=== PATIENT | male | born 1980 | race Caucasian/White ===

== ENCOUNTER 2016-12-30 03:45 | Emergency (ER) | payer OTHER | END 2016-12-30 04:17 | disposition home or self-care (01) | LOC: ER1 03:45 | DX: Z53.21 Procedure and treatment not carried out due to patient leaving prior to being seen by health care provider (principal) ==

== ENCOUNTER → 2017-03-11 | Outpatient (CLI) | payer OTHER ==
[2017-03-11 13:41] LABS: RED BLOOD COUNT 5.09 M/UL (4.20-5.50); WHITE BLOOD COUNT 8.2 K/UL (4.5-11.0)
[2017-03-11 14:00] LABS: BUN/CREATININE RATIO 10 (0-10)
== END ==
LOC: LAB 12:43
PROVIDERS: Internal Medicine
DX: Z11.59 Encounter for screening for other viral diseases (principal); F11.20 Opioid dependence, uncomplicated; Z20.5 Contact with and (suspected) exposure to viral hepatitis; Z72.89 Other problems related to lifestyle
CPT/HCPCS: 36415; 80053; 85027; 86706; 86708; 87390

== ENCOUNTER 2017-04-07 23:29 | Emergency (ER) | payer OTHER ==
[2017-04-08 03:39] LABS: HEMOGLOBIN 15.4 gm/dl (14.0-17.5); RED BLOOD COUNT 4.9 M/UL (4.20-5.50); WHITE BLOOD COUNT 8.1 K/UL (4.5-11.0)
[2017-04-08 03:55] LABS: BUN/CREATININE RATIO 18 (0-10)
== END 2017-04-08 04:05 | disposition left against medical advice (07) ==
LOC: ER1 23:29
PROVIDERS: Physician Assistant
DX: R07.89 Other chest pain (principal); R10.84 Generalized abdominal pain; R11.0 Nausea; R53.1 Weakness; F31.9 Bipolar disorder, unspecified; F41.9 Anxiety disorder, unspecified; B19.10 Unspecified viral hepatitis B without hepatic coma; B19.20 Unspecified viral hepatitis C without hepatic coma; F17.210 Nicotine dependence, cigarettes, uncomplicated; Z79.899 Other long term (current) drug therapy
CPT/HCPCS: 36415; 71010; 80053; 83690; 84484; 85025; 93005; 96361; 96374; 99285; J1885